=== PATIENT | female | born 1965 ===

== ENCOUNTER 2023-01-09 05:45 | Day surgery (SDC) | payer OTHER ==
[~2023-01-09] VITALS: Ht 160 cm; Wt 64.4 kg
[~2023-01-09 05:45] MED LIST: ATORVASTATIN CA10 MG PO; GLIMEPIRIDE4 M1 PO; JANUMET XR 50-1 EAC1 PO; LANTUS SOL100 UNIT/1; LEVO-T75 MCG PO; WELLBUTRIN XL300 MG PO
[2023-01-09] MEDS ORDERED: AYR SALINE50 ML NASAL (17:58)
== END 2023-01-09 21:35 | disposition home or self-care (01) ==
LOC: CIR.AMB 05:45
PROVIDERS: ATTEND Otolaryngology Otology & Neurotology
DX: J34.2 Deviated nasal septum (principal); J34.3 Hypertrophy of nasal turbinates; J34.9 Unspecified disorder of nose and nasal sinuses; Z20.822 Contact with and (suspected) exposure to COVID-19; E78.00 Pure hypercholesterolemia, unspecified; F17.210 Nicotine dependence, cigarettes, uncomplicated; E03.9 Hypothyroidism, unspecified